=== PATIENT | male | born 1945 | race Caucasian/White ===

== ENCOUNTER 2017-01-26 19:14 | Emergency (ER) | payer MEDICARE, OTHER ==
[~2017-01-26] VITALS: Ht 182.9 cm; Wt 94.8 kg
[~2017-01-26 19:14] MED LIST: AMLO5TAB2 PO; ASPI-515 PO; GLUC1TAB27 PO; LOSA100T6 PO; LYSINE PEG; METO50TA82 PO; ROSU20TA PO; UBID100C19 PO
[2017-01-26 19:25] VITALS: BP 135/75
[2017-01-26] MEDS ORDERED: LIDOCAINE 1%, 20ML SQ ONE (20:00)
[2017-01-26] MEDS ORDERED: LIDOCAINE 1%, 20ML ONE (20:33)
[2017-01-26] MEDS ORDERED: BACITRACIN ZINC OINT 500U/GM, 0.9 GM ONE (21:20)
== END 2017-01-26 21:40 | disposition home or self-care (01) ==
LOC: ED 21:25
DX: S62.367B Nondisplaced fracture of neck of fifth metacarpal bone, left hand, initial encounter for open fracture (principal); X58.XXXA Exposure to other specified factors, initial encounter; Y93.89 Activity, other specified; Y99.8 Other external cause status; Y92.009 Unspecified place in unspecified non-institutional (private) residence as the place of occurrence of the external cause
CPT/HCPCS: 12002